=== PATIENT | male | born 1985 | race Hispanic/Latino ===

== ENCOUNTER 2024-09-01 19:40 | Emergency (ER) | payer BC, MEDICARE ==
[~2024-09-01] VITALS: Ht 170.2 cm; Wt 121.1 kg
[~2024-09-01 19:40] MED LIST: BROMFED DM COU118 ML PO; CEFDINIR300 MG PO; ONDANSETRON ODT4 MG PO
[2024-09-01] MEDS: KETOROLAC TROMETHAMINE 30 MG/ML VIAL IV STA (20:25)
[2024-09-01] MEDS: ONDANSETRON HCL INJ 2MG/ML 2ML 2 MG/ML VIAL IV STA (20:32)
[2024-09-01] MEDS: Morphine 4mg INJECTION 4 MG/ML INJ IV ONE ×2 (20:32→23:17)
[2024-09-01] MEDS: SODIUM CHLORIDE 0.9% 1000ML 1,000 ML IV ONE (21:42)
[2024-09-01] MEDS ORDERED: IOPAMIDOL 370 MG/ML 100 ML INFUS..BTL INJ ONE (21:49)
[2024-09-01] MEDS ORDERED: CYCLOBENZAPRINE5 MG PO (23:26)
[2024-09-01] MEDS ORDERED: KETOROLAC TROME10 MG PO (23:26)
[2024-09-01] MEDS ORDERED: HYDROCODON-ACE1 EA11 PO (23:26)
[2024-09-01] MEDS ORDERED: LOSARTAN POTASS25 MG PO (23:38)
[2024-09-01] MEDS: HYDRALAZINE HCL 20 MG/ML VIAL IV STA (23:58)
[2024-09-02 00:09] VITALS: PULSE 83; RESP 16; TEMP 98.3
[2024-09-02 00:25] VITALS: BP 186/84; PULSE 86; RESP 18; TEMP 98.3; O2SAT 99
== END 2024-09-02 00:24 | disposition home or self-care (01) ==
LOC: FSED 19:52
DX: S46.311A Strain of muscle, fascia and tendon of triceps, right arm, initial encounter (principal); X50.0XXA Overexertion from strenuous movement or load, initial encounter; Y92.89 Other specified places as the place of occurrence of the external cause; I10 Essential (primary) hypertension
CPT/HCPCS: 73201; 80053; 85025; 96374; 96375; 99284; J0360; J1885; J2270; J2405; J7030; Q9967